=== PATIENT | female | born 1985 | race Caucasian/White ===

== ENCOUNTER 2016-12-02 04:46 | Emergency (ER) | payer MEDICAID ==
[~2016-12-02] VITALS: Ht 162.6 cm; Wt 65.0 kg
[2016-12-02] MEDS ORDERED: KETOROLAC 30 MG/1 ML ONE (06:25)
[2016-12-02] MEDS ORDERED: KETOROLAC 30 MG/1 ML IM ONE (06:30)
[2016-12-02 07:09] VITALS: BP 150/108
== END 2016-12-02 07:45 | disposition home or self-care (01) ==
LOC: ED 07:30
DX: S80.812A Abrasion, left lower leg, initial encounter (principal); I10 Essential (primary) hypertension; W01.0XXA Fall on same level from slipping, tripping and stumbling without subsequent striking against object, initial encounter; Y93.89 Activity, other specified; Y92.89 Other specified places as the place of occurrence of the external cause; Y99.8 Other external cause status
CPT/HCPCS: 29505; 73564; 96372; 99284; J1885

== ENCOUNTER 2017-10-02 11:22 | Emergency (ER) | payer MEDICAID ==
[~2017-10-02] VITALS: Ht 167.6 cm; Wt 68.0 kg
[2017-10-02] MEDS ORDERED: BP MEDICATION (11:38)
[2017-10-02] MEDS ORDERED: FLUO10CA13 PO (11:38)
[2017-10-02] MEDS ORDERED: LORazepam 2 MG/ML, 1ML ONE (11:42)
[2017-10-02] MEDS ORDERED: LORazepam 2 MG/ML, 1ML IVPush ONE (12:00)
[2017-10-02] MEDS ORDERED: THIAMINE 100 MG in SODIUM CHLORIDE 0.9% 50 ML IVPB ONE (12:00)
[2017-10-02] MEDS ORDERED: SODIUM CHLORIDE 0.9% 1,000ML IVBOLUS ONE (12:00)
[2017-10-02 12:23] LABS: MEAN CORPUSCULAR HEMOGLOBIN 32.5 pg (27.0-34.8); MEAN CORPUSCULAR HGB CONC 34.8 g/dL (32.4-35.8); MEAN CORPUSCULAR VOLUME 93.3 fL (80-100); MEAN PLATELET VOLUME 8.6 fL (7.4-10.4); RED BLOOD COUNT 4.53 x10^6/uL (3.82-5.3); RED CELL DISTRIBUTION WIDTH 14.1 % (9.6-15.2)
[2017-10-02 12:25] LABS: ALANINE AMINOTRANSFERASE 279 U/L (12-78); ALBUMIN 4.2 g/dL (3.4-5.0); ANION GAP 14 mmol/L (5-15); CALCIUM 8.1 mg/dL (8.5-10.1); CHLORIDE 102 mmol/L (98-107); CREATININE 0.66 mg/dL (0.55-1.02); PLATELET COUNT 49 x10^3/uL (130-400)
[2017-10-02 12:29] LABS: ALKALINE PHOSPHATASE 89 U/L (45-117); BASOPHILS # (AUTO) 0.01 x10^3/uL (0-0.1); BASOPHILS % (AUTO) 0 % (0-1); BILIRUBIN,TOTAL 0.9 mg/dL (0.2-1.0); EOSINOPHILS # (AUTO) 0.03 x10^3/uL (0-0.4); EOSINOPHILS % (AUTO) 1 % (1-7); LYMPHOCYTES # (AUTO) 0.89 x10^3/uL (1-3.4); LYMPHOCYTES % (AUTO) 27 % (22-44); MD SCAN; MONOCYTES # (AUTO) 0.51 x10^3/uL (0.2-0.8); MONOCYTES % (AUTO) 15 % (2-9); NEUTROPHILS % (AUTO) 57 % (42-75); TOTAL PROTEIN 7.7 g/dL (6.4-8.2)
[2017-10-02 13:08] LABS: AMPHETAMINE SCREEN, URINE Negative (Negative); BARBITURATE SCREEN, URINE Negative (Negative); BENZODIAZEPINE SCREEN, URINE Negative (Negative); CANNABINOID SCREEN, URINE Negative (Negative); COCAINE SCREEN, URINE Negative (Negative); METHADONE SCREEN, URINE Negative (Negative); OPIATE SCREEN, URINE Negative (Negative)
[2017-10-02 13:10] LABS: MICROSCOPIC INDICATED
[2017-10-02 13:27] LABS: CULTURE INDICATED? NO
[2017-10-02] MEDS ORDERED: CHLORDIAZEPOXIDE 25 MG CAPSULE PO ONE (14:00)
[2017-10-02] MEDS ORDERED: CHLORDIAZEPOXIDE 25 MG CAPSULE ONE ×2 (14:02→14:03)
[2017-10-02 16:50] VITALS: BP 139/94
== END 2017-10-02 16:52 | disposition home or self-care (01) ==
LOC: ED 16:00
DX: F10.239 Alcohol dependence with withdrawal, unspecified (principal); Y90.0 Blood alcohol level of less than 20 mg/100 ml; D69.59 Other secondary thrombocytopenia; I10 Essential (primary) hypertension; Z79.899 Other long term (current) drug therapy; I82.411 Acute embolism and thrombosis of right femoral vein
CPT/HCPCS: 36415; 70450; 80053; 80307; 81001; 82140; 84443; 84703; 85025; 93005; 93971; 96361; 96365; 96375; 99285; J2060; J3411; J7030